=== PATIENT | male | born 1955 | race Caucasian/White ===

== ENCOUNTER 2019-01-24 14:12 | Emergency (ER) | payer OTHER ==
[2019-01-24] MEDS ORDERED: Lidocaine 1% (PF) 30 ML VIAL ONE (15:31)
--- NOTE | 2019-01-24 15:35 | CT ---
CT HEAD WITHOUT IV CONTRAST COMPARISON: None HISTORY: Hit head with total at rest. Left-sided head laceration. TECHNIQUE: Axial CT imaging at 5 mm intervals from vertex through skull base without contrast FINDINGS: There is no evidence of an acute infarction, hemorrhage, mass effect, or midline shift. The ventricul ar system is normal in size, shape, and position. Visualized paranasal sinuses are clear. There is subcutaneous scalp soft tissue swelling seen within the lateral left frontal parietal region and lateral left temporal region with associated subcutaneous gas and minimal soft tissue irregularity. The gas extends into the region of the masseter space on the left suggesting laceration . There is a lucency seen at the junction of the left zygomatic bone and left lateral orbital rim. This may represent a nondisplaced fracture, CT facial bones is recommended. There is also questionabl e fracture involving the lateral left orbital wall. A punctate focus of gas is seen in the superior aspect of the left orbit. This could be related to gas within the upper eyelid but is worrisome for f ocus of gas within the orbit. This can be evaluated on CT facial bones. IMPRESSION: 1. No acute intracranial abnormality demonstrated. 2. Left frontal, parietal, and temporal scalp hematoma with evidence of laceration. 3. Question of nondisplaced fracture involving the left lateral orbital wall with possible extension of the fracture anteriorly to involve the junction of the left zygomatic bone and left superior orbital rim. CT facial bones is suggested for further evaluation.
--- NOTE | 2019-01-24 15:37 | CT ---
Exam: Facial bone CT scan without IV contrast: HISTORY: Injury, hit hand with swelling Rogerio left-sided. There is soft tissue swelling over the anterior left temporal region of the skull and some subcutaneo us and soft tissue air extending into the infratemporal fossa. There are nondisplaced fractures involving the frontal zygomatic region of the orbit and lateral orbital wall as well as a nondisplace d fracture of the medial infraorbital rim. Minimal depression of the left orbital floor evidence for a nondisplaced but slightly depressed orbital floor fracture. Nondisplaced left nasal bone fractu re. Zygomatic arch appears intact. The mandible appears intact. Left-sided nasal septal deviation and nasal septal spur. Mild ethmoid sinus mucosal disease. IMPRESSION: Left-sided facial and orbital fractures as above.
[2019-01-24] MEDS ORDERED: Acetaminophen 500 MG TAB ONE (16:03)
[2019-01-24] MEDS ORDERED: Amoxicillin/Potassium Clav 875 MG TAB ONE (16:03)
== END 2019-01-24 16:10 | disposition still patient (30) ==
LOC: NAV ERS 14:12 → EDSEX 14:12 → NAV ERS 16:10
DX: S02.842A Fracture of lateral orbital wall, left side, initial encounter for closed fracture (principal); S01.01XA Laceration without foreign body of scalp, initial encounter; F32.9 Major depressive disorder, single episode, unspecified; Z79.899 Other long term (current) drug therapy; W22.8XXA Striking against or struck by other objects, initial encounter
CPT/HCPCS: 12011; 70450; 70486; J2001